=== PATIENT | male | born 1960 | race Caucasian/White ===

== ENCOUNTER 2017-03-16 08:46 | Emergency (ER) | payer BC ==
[2017-03-16] MEDS ORDERED: Diphtheria,Pertussis(Acell),Tetanus Vaccine 0.5 ML SDV IM ONE (09:16)
[2017-03-16] MEDS ORDERED: Lidocaine 1% 20 ML MDV INJECT ONE (09:24)
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
[2017-03-16 10:03] VITALS: BP 144/83
== END 2017-03-16 10:00 | disposition home or self-care (01) ==
LOC: FB.ED 08:46
DX: S61.210A Laceration without foreign body of right index finger without damage to nail, initial encounter (principal); Z23 Encounter for immunization; W25.XXXA Contact with sharp glass, initial encounter
CPT/HCPCS: 12001; 90471; 90715; 99283; A4217; 12002